=== PATIENT | male | born 1985 | race African-American/Black ===

== ENCOUNTER 2022-04-19 10:02 | Emergency (ER) | payer OTHER, SELFPAY ==
[2022-04-19 10:05] VITALS: BP 124/77; PULSE 81; RESP 16; TEMP 36.8; O2SAT 100
[2022-04-19 10:53] LABS: SARS-CoV-2 RNA PCR Negative
[2022-04-19 11:12] LABS: Influenza A QL RT-PCR Negative (Negative); Influenza B QL RT-PCR Negative (Negative)
--- NOTE | 2022-04-19 11:31 | ED.URI ---
HPI - URI/Sore Throat General Chief Complaint: Upper Respiratory Infection Stated Complaint: UPPER RESP ISSUES, SON FLU + Time Seen by Provider: 04/19/22 11:18 History of Present Illness HPI Narrative: cough for a day no other symptoms exposed to flu no dm, asthma does smoke Related Data Allergies Allergy/AdvReac Type Severity Reaction Status Date / Time No Known Allergies Allergy Verified 04/19/22 11:31 Review of Systems Constitutional: Comments: CONSTITUTIONAL: Denies fever, chills, or sweats. EYES: Denies visual changes, redness, or discharge. ENT: Denies rhinorrhea, congestion, sore throat, or otalgia. CARDIOVASCULAR: Denies chest pain, palpitations, or edema. RESPIRATORY: Denies or dyspnea. has cough GASTROINTESTINAL: Denies abdominal pain, nausea, vomiting, or diarrhea. GENITOURINARY: Denies dysuria or hematuria. SKIN: Denies rash or itching. MUSCULOSKELETAL: Denies back pain, joint pain, or myalgia. NEUROLOGIC: Denies headache, numbness, or weakness. PSYCHIATRIC: Denies anxiety or depression. Exam Const: Other: APPEARANCE: Well appearing, no pain in distress, well-nourished. Head normocephalic atraumtaic. EYES: PERRLA/EOMI, conjunctivae very clear. NOSE: Normal no drainage EARS:TMS clear Rainer Voss, with good light reflex. THROAT: Pharynx clear, no exudate. NECK: Supple. No adenopathy, no masses. RESPIRATORY: Airway patent, repsirations nonlabored. Clear to auscultation bilaterally, no rales, rhonchi, wheezing. CARDIOVASCULAR: Regular rate and rhythm without murmurs rubs or gallops. ABDOMINAL: Soft, nontender, nondistended, no hepatosplenomegally MUSCULOSKELETAl: Moves all extremities. Strenght/ROM intact, No edema, No calf tenderness. NEURO: Alert. Cranial nerves II through XII intact. Good gait. Good coordination SKIN:: Warm, dry. Normal Color PSYCHIATRIC: Normal affect/mood, normal interaction with parents. Course Course Emergency Course: pt good with plan Vital Signs Vital signs: Vital Signs Temperature 36.8 C 04/19/22 10:05 Pulse Rate 81 04/19/22 10:05 Respiratory Rate 16 04/19/22 10:05 Blood Pressure 124/77 04/19/22 10:05 Pulse Oximetry 100 04/19/22 10:05 Oxygen Delivery Room Air 04/19/22 10:05 Temperature 36.8 C 04/19/22 10:05 Pulse Rate 81 04/19/22 10:05 Respiratory Rate 16 04/19/22 10:05 Blood Pressure 124/77 04/19/22 10:05 Pulse Oximetry 100 04/19/22 10:05 Oxygen Delivery Room Air 04/19/22 10:05 MDM - URI/Sore Throat Lab Data Labs: Lab Results 04/19/22 04/19/22 Range/Units 10:10 10:10 Influenza A (RT-PCR) Negative (Negative) Influenza B (RT-PCR) Negative (Negative) SARS-CoV-2 RNA (RT-PCR) Negative Discharge Plan Discharge Clinical Impression: Upper respiratory infection Patient Disposition: Home, Self-Care Condition: Stable Instructions: Antibiotic Form, Viral Syndrome (ED) Additional Instructions: stop smoking, over the counter cough and cold medication, call your doc for further care, return if new issues Follow-up/Referrals: PHYSICIAN NOT ON STAFF,NONSTAFF [Primary Care Provider] -
== END 2022-04-19 12:21 | disposition home or self-care (01) ==
PROVIDERS: Emergency Provider Emergency Medicine
DX: J06.9 Acute upper respiratory infection, unspecified (principal); Z20.822 Contact with and (suspected) exposure to COVID-19
CPT/HCPCS: 87502; 99283; C9803; U0003; U0005